=== PATIENT | female | born 1970 | race Caucasian/White ===

== ENCOUNTER 2016-03-19 15:35 | Emergency (ER) | payer OTHER ==
[~2016-03-19] VITALS: Ht 170.2 cm; Wt 90.9 kg
[2016-03-19 15:56] VITALS: BP 114/78; PULSE 103; RESP 16; O2SAT 96
[2016-03-19 18:10] VITALS: BP 112/79; PULSE 101; O2SAT 93
--- NOTE | 2016-03-19 18:43 | ED.REPORT ---
HPI-General Illness Date of Service Mar 19, 2016 ED Provider: Brennon Momin MD 46 year old female with no significant PMHx who presents to the ED due to rash for 1 week. Rash is to the abd extending to neck and pelvic region. Pt reports 15 year history of similar rash. She reports sore, itchy, scaling, with occasional weeping of clear liquid. She now complains of itching behind ears. She also reports runny nose, cough, sore throat, fever, chills and myalgias this morning. She reports she has had similar symptoms previously that has resolved with Silvadene. Nursing Notes Stated Complaint: MRSA,HEADCOLD,EARS Chief Complaint: Skin Rash/Abscess Nursing Notes Reviewed: Yes Allergies: Coded Allergies: No Known Allergies (Unverified , 03/19/16) General Time Seen by MD: 18:02 Chief Complaint Rash Hx Obtained From: Patient Arrived By: Walk-in Sudden in Onset?: No Onset Occurred: 1 week ago Symptom Duration: Since onset Severity: Current: No pain currently Associated with: Reports: Fever, Nasal discharge Pertinent Negative: Relieved by nothing Past Medical History Past Medical History Hx rash to abd, MRSA, otherwise negative Past Surgical History None reported Smoking History Unknown if Ever Smoker Social History Alcohol Use: "Social" Drug Use: Meth, THC Review of Systems Full Review of Systems Constitutional: Reports: Chills, Fever Ears / Nose / Throat: Reports: Nasal congestion, Sore throat Respiratory: Reports: Non-productive cough, Denies: Shortness of breath Cardiovascular: Denies: Chest pain GI: Denies: Abdominal pain, Diarrhea, Vomiting Musculoskeletal: Reports: Myalgia Skin: Reports Itching, Reports Rash Complete sys rev & neg: except as marked. Physical Exam Vital Signs Vital Signs Date Time Temp Pulse Resp B/P Pulse Ox O2 Delivery O2 Flow Rate FiO2 03/19/16 19:33 37.2 99 111/81 93 Room Air 03/19/16 18:10 37.1 101 112/79 93 Room Air 03/19/16 15:56 36.7 103 16 114/78 96 Room Air Initial VS: Reviewed General/Constitutional: Well-developed, Well-nourished Head / Eyes: Atraumatic, Normocephalic, PERRL ENT: Mucous membranes moist, Conjunctiva normal, No scleral icterus Neck: Supple, Non-tender, Full range of motion Respiratory: Breath sounds normal, Clear to auscultation, No respiratory distress Cardiovascular: Regular rate & rhythm, Heart sounds normal, Intact distal pulses Abdomen / GI: Non-tender Neurologic: Alert, Oriented, Nonfocal Skin: Warm, Dry Large area of fungal rash under breast, and R anterior chest wall wrapping posteriorly. Posterior auricular scaly erythematous rash. Re-Eval/Medical Decision Med Decision/Clinical Course Patient is a homeless 46-year-old female who presents with extensive rash as described above. She is afebrile with stable vital signs in no apparent distress. Her rash is most consistent with any incorporate as as well as seborrheic dermatitis about the extraocular regions. She reports that she has responded well to oral antifungals as well as steroid/antifungal creams. He is provided with a prescription for clotrimazole cream as well as ketoconazole shampoo. She requested topical steroid/antifungal combination to apply to the postauricular area as this has been helpful in the past. She was provided with a prescription for this medication. Upon discharge she adamantly insisted that we provide her with Silvadene cream. She states that the Silvadene cream has caused her fungal rash to resolve in the past. Despite explaining to the patient multiple times that he did not feel this appropriate medication she insisted that she have some Silvadene cream. I see little harm in giving her this medication and it may provide her some comfort. I reiterated the importance of actually applying the fungal medications which were provided. There is no evidence of cellulitis or abscess. There is no evidence of other more immediately concerning cause of her rash. I feel that she is appropriate for discharge at this time. Follow-up and return precautions were reviewed in detail and she verbalized understanding and agreement with the plan. Time of Eval: 19:11 Re-Evaluation/Progress Note: refused chest x-ray. Pt discharged home. Counseled Regarding: Diagnosis, Need for follow-up, When/why to return to ED Discharge & Departure Primary Impression: Tinea corporis Additional Impressions: Cough Seborrheic dermatitis Disposition: Home Discharge Condition All VS Reviewed: Yes Condition: Stable Additional Instructions: Thank you for seeking care at [facility] emergency room. It is difficult for us to make definitive diagnoses in the ED but we believe that you are experiencing a fungal rash. Our primary goal today in the ED was to evaluate you for any life-threatening conditions. Your evaluation was reassuring. You will be discharged with a prescription for rash cream. You should follow-up with your primary doctor in the next week. You should return to the ED immediately if you develop fevers, vomiting, cough , shortness of breath, chest pain, lightheadedness, weakness or any other concerning signs or symptoms. Thank you for letting us partake in your care today. Scribe Attestation Portions of this note were transcribed by Adriana Hagan. I, (Dr. Momin) personally performed the history, physical exam and medical decision-making; I reviewed and confirmed the accuracy of the information in the transcribed note. Signed by: Adriana Hagan. 03/19/2016, 2348 Brennon Momin MD Mar 19, 2016 18:43 Adriana Hagan Mar 19, 2016 18:53
[2016-03-19 19:33] VITALS: BP 111/81; PULSE 99; O2SAT 93
== END 2016-03-19 19:41 | disposition home or self-care (01) ==
LOC: SED 15:35
DX: B35.4 Tinea corporis (principal); L21.9 Seborrheic dermatitis, unspecified; R05 Cough; R09.89 Other specified symptoms and signs involving the circulatory and respiratory systems; J02.9 Acute pharyngitis, unspecified; R50.9 Fever, unspecified; M79.1 Myalgia; Z86.14 Personal history of Methicillin resistant Staphylococcus aureus infection

== ENCOUNTER 2016-03-20 18:17 | Emergency (ER) | payer OTHER ==
[~2016-03-20] VITALS: Ht 170.2 cm; Wt 90.9 kg
[2016-03-20 18:19] VITALS: BP 150/100; PULSE 116; RESP 24; O2SAT 91
--- NOTE | 2016-03-20 19:11 | ED.REPORT ---
HPI-Dyspnea / Wheezing Date of Service Mar 20, 2016 ED Provider: Yong De La Rosa MD Patient is a 46 year old female with a history of MRSA who presents to the ED complaining of cough onset a few days ago. Associated symptoms include SOB, runny nose, and fever. She denies abdominal pain, vomiting, or any other symptoms. She denies drug use at this time. She was seen in the ED yesterday for the same symptoms and refused respiratory treatment. Nursing Notes Stated Complaint: MRSA, NOSE INFECTION Chief Complaint: Respiratory Complaints Nursing Notes Reviewed: Yes Allergies: Coded Allergies: No Known Allergies (Unverified , 03/20/16) General Time Seen by MD: 19:09 Chief Complaint Cough Hx Obtained From: Patient Arrived By: Walk-in Past Medical History Past Medical History Hx rash to abd, MRSA, otherwise negative Past Surgical History None reported Smoking History Current Every Day Smoker, Unknown if Ever Smoker Social History Alcohol Use: "Social" Drug Use: Meth, THC Ambulatory Status Independent Review of Systems Constitutional: Reports: Fever Respiratory: Reports: Non-productive cough, Shortness of breath Allergy / Immune: Reports: Rhinorrhea Complete sys rev & neg: except as marked. GI: Denies: Abdominal pain, Vomiting Physical Exam Initial Vital Signs Vital Signs (First) Date Time Temp Pulse Resp B/P Pulse Ox O2 Delivery O2 Flow Rate FiO2 03/20/16 18:19 36.4 116 24 150/100 91 Room Air Initial VS: Reviewed Head / Eyes: Atraumatic, Normocephalic Neurologic: Alert, Oriented, Nonfocal Psychiatric: Mood/affect normal, Behavior normal, Normal thought content General/Constitutional: Awake, Alert, Well developed Neck: Full range of motion Respiratory / Chest: Breath sounds NL, Breath sounds = bilat, No respiratory distress Cardiovascular: Heart rate NL, Regular rhythm, Heart sounds NL, No murmurs Color / Condition: Positive: Rash present Rash / Lesion Notes: Mid abdominal to mid chest diffuse erythematous scaly rash Groin with diffuse erythematous scary rash 1 cm pustule L lower abdomen without fluctuance Re-Eval/Medical Decision Med Decision/Clinical Course 46-year-old female with rash times years. Complaining of MRSA. Seen for similar several days ago diagnosed with tinea corporis. Rash consistent with tinea corporis here. Also with one small area of cellulitis/pustule less than 1 cm left lower quadrant. We went to discharge the patient with topical steroid cream and short course antibiotics and patient had already left the room without being discharged. Re-Evaluation/Progress : Time of Eval: 20:12 Re-Evaluation/Progress Note: Patient left spontaneously AMA while we were awaiting her chest x-ray. Discharge & Departure Impression: Primary Impression: Tinea corporis Additional Impression: Cellulitis Disposition: AGAINST MEDICAL ADVICE Additional Instructions: Thank you for entrusting us with your care today. Your exam and x-ray were reassuring. It does not appear that you have any life threatening illnesses at this time. Follow up with your primary care provider in the next week. Return to the emergency department if you experience fever, shortness of breath , worsening redness, swelling, discharge, or any new or worsening symptoms. Referrals: [facility] Scribe Attestation Portions of this note were transcribed by Alistair Ray. I, Dr. De La Rosa personally performed the history, physical exam and medical decision-making; I reviewed and confirmed the accuracy of the information in the transcribed note. Signed by: Alistair Ray 03/20/16, [id number] copies to: [facility] Yong De La Rosa MD Mar 20, 2016 19:11 ALISTAIR RAY Mar 20, 2016 19:21
[2016-03-20 19:22] VITALS: PULSE 99; RESP 16; O2SAT 93
== END 2016-03-20 20:50 | disposition home or self-care (01) ==
LOC: SED 18:17
DX: B35.4 Tinea corporis (principal); L03.311 Cellulitis of abdominal wall; R06.02 Shortness of breath; R09.89 Other specified symptoms and signs involving the circulatory and respiratory systems; F17.200 Nicotine dependence, unspecified, uncomplicated; Z59.0 Homelessness

== ENCOUNTER 2016-03-24 17:33 | Emergency (ER) | payer OTHER ==
[~2016-03-24] VITALS: Ht 170.2 cm; Wt 90.9 kg
[2016-03-24 17:42] VITALS: BP 150/103; PULSE 87; RESP 20; O2SAT 92
--- NOTE | 2016-03-24 18:38 | ED.REPORT ---
HPI-Rash / Abscess Date of Service Mar 24, 2016 ED Provider: Jeremías Ramirez PA-C Irene is a 46-year-old female with history of schizoaffective disorder who presents to emergency department for skin irritation. Complaints of pain after applying a home remedy (orange oil, garlic better, banana puree) to her "MRSA infection." She states it underwood and she was screaming at the job placement office, so they called an ambulance for her. She states that the pain is resolved. She states that her schizoaffective disorder is at baseline, she hears voices but does not have visual hallucinations. Denies suicidal ideation , homicidal ideation. Nursing Notes Stated Complaint: SKIN IRRITATION Chief Complaint: Psychiatric Complaint Nursing Notes Reviewed: Yes Allergies: Coded Allergies: No Known Allergies (Unverified , 03/24/16) General Time Seen by MD: 18:13 Chief Complaint Other (skin irritation) Past Medical History Past Medical History Hx rash to abd, MRSA, otherwise negative Past Surgical History None reported Smoking History Current Every Day Smoker, Unknown if Ever Smoker Social History Alcohol Use: "Social" Drug Use: Meth, THC Ambulatory Status Independent Review of Systems Negative unless stated otherwise negative. Physical Exam General: Disheveled, obese, no acute distress. Smells of garlic. Head: Atraumatic, normocephalic. Eyes: No scleral icterus or injection. No discharge. Vision grossly intact. ENT: Voice clear, hearing grossly intact. Respiratory: Regular rate and rhythm. Breath sounds present, clear to auscultation and equal bilaterally. Cardiovascular: Regular rate and rhythm, without murmur, gallop or rub. No pedal edema. Skin: Extensive dark red intertrigo with satellite lesions and moderate maceration below breasts, pannus, inguinal creases Neurological: Grossly nonfocal. Psychological: Alert and oriented. Speech appropriate, clear and organized. Initial Vital Signs Vital Signs (First) Date Time Temp Pulse Resp B/P Pulse Ox O2 Delivery O2 Flow Rate FiO2 03/24/16 17:42 37.2 87 20 150/103 92 Room Air Initial VS: Reviewed, Vital signs normal Re-Eval/Medical Decision Med Decision/Clinical Course Irene is a 46-year-old female diagnosed with schizoaffective disorder, well-known to this department presenting after she applied a "home remedy to MRSA" which apparently consisted of Stanly oil, garlic powder and banana puree. This caused her pain and she was screaming while at job placement office. An ambulance was called for her and she was transported here. By the time she was seen in the ED her pain had subsided. History and physical reveals widespread intertriginous erythema with satellite lesions beneath her breasts, pannus and inguinal crease. I believe this is dea intertrigo and offered her oral antifungals. She states that these do not work and asked for cream. I provided a prescription for clotrimazole cream, primary care follow-up referral, return precautions and discharged. I discussed this case with Dr. Abdirahman Rivers Discharge & Departure Impression: Primary Impression: Candidal intertrigo Disposition: Home Discharge Condition All VS Reviewed: Yes Condition: Stable Additional Instructions: Evaluation for irritated skin emergency department today. Your rash appears to be caused by a fungus called Dea. I suggest you use talcum powder beneath her breasts and stomach to help keep the areas dry. I prefer to prescribe some some pills to help without rash but she would have told me you do not want them. Instead I will prescribe a cream that should be helpful. I also provided a referral for primary care follow-up. Please contact them on Saturday to arrange follow-up as soon as possible. Return to emergency department for any new or worsening symptoms Referrals: [facility] EDSupervising Provider for APC: Yong De La Rosa MD, Seth PA-C Mar 24, 2016 18:38
== END 2016-03-24 19:01 | disposition home or self-care (01) ==
LOC: EDUNIT# 17:33 → SED 17:33 → EDBD 17:33 → SED 19:01
DX: B37.89 Other sites of candidiasis (principal); L30.4 Erythema intertrigo; F25.9 Schizoaffective disorder, unspecified; F17.200 Nicotine dependence, unspecified, uncomplicated; E66.9 Obesity, unspecified

== ENCOUNTER 2016-04-01 02:34 | Emergency (ER) | payer OTHER ==
[2016-04-01 02:40] VITALS: BP 144/102; PULSE 86; RESP 18; O2SAT 94
--- NOTE | 2016-04-01 02:51 | ED.REPORT ---
HPI-General Illness Date of Service Apr 01, 2016 ED Provider: Major House MD Patient is a homeless 46 year old female with a history of schizoaffective disorder and methamphetamine abuse who presents to the ED via EMS complaining of generalized body pain due to "parasites", which she reports is causing her severe pain this morning. The patient states that she has "bugs all over the meat of my body", "worms and parasites are crawling all over my body". She states that the parasites are causing her extreme pain and that she is "up all night screaming". She is here for treatment of her parasites, not her fungal infection, for which she is already undergoing treatment.The patient was seen in the ED 3x between 03/19-03/20 for this same complaint, each time she was prescribes anti-fungal medications and diagnosed with a fungal infection. However, the patient states that her true problem is parasites and she is treating her rash with Silvadene. This is the only thing that she states works. Patient would like to be seen by an infectious disease specialist. However, she does not currently have a PCP. Nursing Notes Stated Complaint: GENERALIZED WEAKNESS Chief Complaint: General Complaint Nursing Notes Reviewed: Yes Allergies: Coded Allergies: No Known Allergies (Unverified , 03/24/16) Scheduled Terbinafine Cream (Terbinafine Cream) 30 Gm Cream..g. 1 APPLIC TOPICAL BID General Time Seen by MD: 02:51 Chief Complaint Rash Hx Obtained From: Patient Arrived By: Walk-in Sudden in Onset?: No Onset Occurred: Onset unknown Quality: Painful ("everywhere") Severity: Current: Severe Severity: Maximum: Severe Recent Healthcare: Recent doctor visit Similar Sx Previous: Yes Past Medical History Past Medical History Hx rash, "MRSA" per patient. Seen in the ED 3x on -03/20/2016 for candidal intertrigo, patient refuses anti-fungals. schizoaffective disorder Past Surgical History None reported Smoking History Current Every Day Smoker, Unknown if Ever Smoker Social History Alcohol Use: "Social" Drug Use: Meth, THC Other Social History: Local resident, Homeless Ambulatory Status Independent Review of Systems + full body pain Full Review of Systems Constitutional: Denies: Chills, Fever Skin: Reports Rash, Denies Unexplained bruises Complete sys rev & neg: except as marked. Physical Exam Vital Signs Vital Signs Date Time Temp Pulse Resp B/P Pulse Ox O2 Delivery O2 Flow Rate FiO2 04/01/16 02:40 36.5 86 18 144/102 94 Initial VS: Reviewed General/Constitutional: Awake, Alert, Well hydrated Behavior: Positive: Agitated Head / Eyes: Normocephalic, PERRL ENT: Airway patent edentulous Neck: Supple, Full range of motion Respiratory / Chest: No respiratory distress, No stridor Cardiovascular: Heart rate NL, Cap refill not delayed Abdomen: Soft, Non-tender Upper Extremities Upper Extremity / MS: Full range of motion, Neurologic intact, Vascular intact Lower Extremity / Pelvis / MS: Full range of motion, Neurologic intact, Vascular intact Skin: Warm, Dry Rash / Lesion Notes: large intertriginous rash under the breasts and across the abdomen. excoriations on arms. Neurologic: Speech NL, No motor deficits, No sensory deficits tardive dyskinesias Abnormal Thinking / Perception: Positive: Delusions - paranoid agitated, believes parasites are crawling on her skin Interpretation & Diagnostics Interpretation & Diagnostics: Urine Tox Dip: Positive for TCAs, all else negative Lab Results Interpretation Test 04/01/16 03:00 Urine Color Yellow (YELLOW) Urine Appearance Hazy (CLEAR,HAZY) Urine pH 6.0 (5.0-8.0) Urine Specific [place] 1.010 (1.003-1.035) Urine Protein Negativemg/dL (NEG,TRACE) Urine Glucose (UA) Negativemg/dL (NEGATIVE) Urine Ketones Negativemg/dL (NEGATIVE) Urine Occult Blood Moderate (NEGATIVE) Urine Nitrite Negative (NEGATIVE) Urine Bilirubin Negative (NEGATIVE) Urine Urobilinogen Normalmg/dL (NORMAL) Urine Leukocyte Esterase Trace (NEGATIVE) Urine RBC 0-2/hpf (0-2) Urine WBC 0-5/hpf (0-5) Urine Epithelial Cells Few/hpf (NONE-MOD) Urine Crystals None seen (NONE SEEN) Urine Bacteria None/hpf (NONE-FEW) Urine Hyaline Casts None/lpf (NONE) Urine Granular Casts None seen (NONE SEEN) Urine Waxy Casts None seen (NONE SEEN) Urine Red Blood Cell Casts None seen (NONE SEEN) Urine White Blood Cell Casts None seen (NONE SEEN) Urine Mucus None seen (None Seen) Urine Trichomonas None seen (NONE SEEN) Urine Yeast None (NONE SEEN) Urine Culture Reflexed Indicated Re-Eval/Medical Decision Med Decision/Clinical Course 46-year-old with schizoaffective disorder, chronic methamphetamine abuse, and delusions of parasitosis, presents for evaluation. No indication of any of the claim symptoms visible on her body. She is fixed and her believes and difficult to reason with. She has not intertrigo rash on her belly that she has been treating with Silvadene cream. Has been no appreciable improvement. She refuses antifungal cream. She is discharged in stable condition for follow-up with residency clinic Source of Hx: Old records Time of Eval: 02:58 Re-Evaluation/Progress Note: Patient was informed that parasites are not something that are worked up in the ED. She will need to follow-up with an ID specialist. Patient does not have a PCP and states that it will take too long. She asks if Urgent Care would be able to get her in to see a specialist sooner. Patient was informed that her rash is consistent with a fungal infection. She was offered anti-fungal cream, which she declines. Patient was offerred sedating medications, which she declines. Patient understands and agrees with the plan to be discharged. Discharge instructions and follow-up discussed. All questions were addressed. Return to the ED warnings given. Counseled Regarding: Diagnosis, Need for follow-up, When/why to return to ED Discharge & Departure Primary Impression: Candidal intertrigo Disposition: Home Discharge Condition All VS Reviewed: Yes Condition: Stable Patient Instructions: Terbinafine (On the skin) Additional Instructions: Follow-up in residency clinic for general care and for referral to wood heel cementer if needed. Apply terbinafine twice daily to the rash on your abdomen. Referrals: [facility] Cheryl Attestation Portions of this note were transcribed by Candy Tafoya. I, Dr. House personally performed the history, physical exam and medical decision-making; I reviewed and confirmed the accuracy of the information in the transcribed note. Signed by: Cheryl Dennis, 04/01/2016 [id number] copies to: [facility] Major House MD Apr 01, 2016 02:51 Candy Tafoya Apr 01, 2016 03:01
[2016-04-01] MEDS ORDERED: TerBINafine 1% 15 Gm Cream TOPICAL ONE (03:05)
[2016-04-01] MEDS ORDERED: TERB30CR15 TOPICAL (03:08)
[2016-04-01 03:20] LABS: APPEARANCE,URINE HAZY (CLEAR,HAZY); COLOR,URINE YELLOW (YELLOW); OCCULT BLOOD,URINE MODERATE (NEGATIVE); UROBILINOGEN,URINE NORMAL (NORMAL)
== END 2016-04-01 03:22 | disposition home or self-care (01) ==
LOC: EDBD 02:34 → SED 02:34 → EDUNIT# 02:34 → SED 03:22
DX: B37.2 Candidiasis of skin and nail (principal); F25.9 Schizoaffective disorder, unspecified; R21 Rash and other nonspecific skin eruption; F15.20 Other stimulant dependence, uncomplicated; F17.200 Nicotine dependence, unspecified, uncomplicated; Z86.19 Personal history of other infectious and parasitic diseases; Z59.0 Homelessness

== ENCOUNTER 2016-04-04 08:02 | Emergency (ER) | payer OTHER ==
[~2016-04-04 08:02] MED LIST: TERB30CR15 TOPICAL
[2016-04-04] MEDS ORDERED: Haloperidol 5 mg/mL Inj IM ONE (08:10)
[2016-04-04 08:13] VITALS: BP 133/72; PULSE 109; RESP 16; O2SAT 100
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
[2016-04-04 08:58] LABS: EOSINOPHILS % (AUTO) 2.7 % (0-5); MONOCYTES % (AUTO) 8.9 % (4-12); Mean Corpuscular Hemoglobin 29.1 pg (27.0-35.0); Mean Corpuscular Volume 88.6 fL (81-100); NEUTROPHILS % (AUTO) 70.2 % (40-74); Platelet Count 289 bil/L (150-400)
--- NOTE | 2016-04-04 13:40 | DRSVH ---
PROCEDURE: X-RAY CHEST ONE VIEW, PORTABLE ([id number]) INDICATIONS: cough TECHNIQUE: One view of the chest was acquired. COMPARISON: [facility] [place], CR, XR CHEST 2V AP/PA AND LAT, 03/21/2016, 11:52 AM. FINDINGS: Surgical changes and devices: None. Lungs and pleura: No pleural effusions or pneumothorax. Lungs are clear. Mediastinum: Mediastinal contours appear normal. Heart size is normal. Bones and chest wall: No suspicious bony lesions. Overlying soft tissues appear unremarkable. IMPRESSION: No acute cardiopulmonary disease process. Dictated by: Antoinette Carrizales MD, PhD on 04/04/2016 at 13:38 Approved by: Antoinette Carrizales MD, PhD on 04/04/2016 at 13:39
[2016-04-04 18:55] VITALS: BP 126/81; PULSE 81; O2SAT 93
[2016-04-04 23:52] VITALS: BP 102/63; PULSE 70; RESP 12; O2SAT 97
[2016-04-05 02:33] VITALS: BP 102/63; PULSE 70; RESP 12; O2SAT 97
== END 2016-04-05 02:33 | disposition home or self-care (01) ==
LOC: EDUNIT# 08:02 → EDBD 08:02 → SED 08:02
DX: F43.0 Acute stress reaction (principal); L30.9 Dermatitis, unspecified; Z59.0 Homelessness
CPT/HCPCS: 36415; 71010; 80053; 81002; 81025; 84443; 85025; 96372; 99284; G0480; J1200; J1630; J2060